=== PATIENT | female | born 1935 | race Caucasian/White ===

== ENCOUNTER → 2023-10-02 09:29 | Outpatient (REF) | payer MEDICARE, SELFPAY | LOC: HWRAD 09:29 | PROVIDERS: ATTENDING PHYSICIAN Internal Medicine Gastroenterology; FAMILY PHYSICIAN Internal Medicine | DX: R19.4 Change in bowel habit (principal); Z85.038 Personal history of other malignant neoplasm of large intestine | CPT/HCPCS: 74261 ==

== ENCOUNTER 2024-06-21 06:01 | Day surgery (SDC) | payer MEDICARE, SELFPAY ==
[2024-06-12 11:11] LABS: Hematocrit 40.5 % (37.0-47.0); Hemoglobin 13.6 g/dL (12.0-16.0); Mean Corp Hgb Conc. 33.6 g/dL (33.0-37.0); Mean Corpuscular Hgb 30.2 pg (27.0-31.0); Platelet Count 216 10^3/uL (130-400); Red Cell Dist. Width 14.1 % (11.5-14.5); White Blood Cell Count 7.1 10^3/uL (4.8-10.8)
[2024-06-12 11:37] LABS: Blood Urea Nitrogen 14 mg/dl (7-17); Calcium 9.4 mg/dl (8.4-10.2); Carbon Dioxide 33 mmol/L (22-30); Chloride 92 mmol/L (98-107); Glucose 85 mg/dl (70-99); Potassium 4.5 mmol/L (3.5-5.1); Sodium 132 mmol/L (135-145); eGFR > 60.00
[2024-06-12 13:40] VITALS: BMI 22.6
[2024-06-21 06:14] VITALS: BMI 22.6
[2024-06-21 06:15] VITALS: BP 163/88
--- NOTE | 2024-06-21 06:36 | HP.FOC2 ---
Focused History & Physical
Chief Complaint
HPI:
Chief Complaint: Left inguinal hernia
HPI / Indication for Planned Procedure: Patient is an 88-year-old female recently seen in outpatient surgical evaluation secondary to intermittent swelling in the left inguinal region. Physical examination confirmed the presence of a reducible left
inguinal hernia. Patient presents today for scheduled operative correction
Relevant Past Medical History: Other (Hypothyroidism, hypercholesterolemia, GERD, tachycardia, anxiety, history of colon cancer)
Relevant Social History: Negative
Relevant Family History: Negative
Relevant Past Surgical History: Positive for (Hysterectomy, right hemicolectomy, cataracts, open right inguinal herniorrhaphy, hemorrhoid surgery)
Review of Systems
Review of Pertinent Systems: All Systems Negative
Medication
See Medication form for detailed medications: Yes
Medication List (including Herbals & OTC):
alprazolam 0.25 mg disintegrating tablet 0.25 tablets PO BID PRN anxiety 08/14/15
denosumab 60 mg/mL subcutaneous syringe (Prolia) 60 mg SQ [id number] 03/11/18
docusate sodium 100 mg capsule (Colace) 100 mg PO DAILYPRN PRN constipation 03/11/18
metoprolol succinate 25 mg tablet,extended release 24 hr 12.5 mg PO BID 03/11/18
levothyroxine 50 mcg tablet 50 mcg PO DAILY 06/30/19
Biotin 1 tab PO DAILY 09/18/20
aspirin 81 mg chewable tablet 81 mg PO MOWEFR 09/18/20
cholecalciferol (vitamin D3) 25 mcg (1,000 unit) capsule (Vitamin D3) 1,000 unit PO DAILY 09/18/20
mirtazapine 7.5 mg tablet 7.5 mg PO QPM 09/18/20
polyethylene glycol 3350 17 gram/dose oral powder (Miralax) 119 gm PO QPM 09/18/20
docusate sodium 100 mg capsule (Colace) 200 mg PO HS 06/14/24
ezetimibe 10 mg tablet (Zetia) 10 mg PO DAILY 06/14/24
levothyroxine 75 mcg capsule 75 mcg PO ARROYO 06/14/24
omeprazole 20 mg tablet,delayed release 20 mg PO DAILY 06/14/24
vit C 250 mg-vit E 90 mg-zinc 40 mg-copper 1 ra-[id number]-zoiitp capsule (PreserVision AREDS-2) 1 tab PO BID 06/14/24
magnesium hydroxide 400 mg/5 mL oral suspension (Milk of Magnesia) 400 mg PO DAILY PRN constipation 06/21/24
Medications Reviewed: Yes
Allergies and Reactions
Patient has Allergies: Yes
Noted Allergies and Reactions:
Allergy/AdvReac Type Severity Reaction Status Date / Time
escitalopram [From Lexapro] Allergy Unknown Vomiting Verified 06/21/24 06:22
nitrofurantoin Allergy Unknown Nausea / Verified 06/21/24 06:22
[From Macrobid] Vomiting
sertraline Allergy Unknown Unknown Verified 06/21/24 06:22
trazodone Allergy Unknown Nausea / Verified 06/21/24 06:22
Vomiting
amoxicillin [From Augmentin] Allergy diarrhea Verified 06/21/24 06:22
clavulanic acid Allergy diarrhea Verified 06/21/24 06:22
[From Augmentin]
doxycycline Allergy upset Verified 06/21/24 06:22
stomach
hydromorphone HCl Allergy Unknown Verified 06/21/24 06:22
[From Dilaudid]
levofloxacin [From Levaquin] Allergy Rash Verified 06/21/24 06:22
procaine Allergy Shortness Verified 06/21/24 06:22
of Breath
Pertinent Physical Exam
All Other Systems: Negative
Head/Neck: Normal
Lungs: Normal
Heart: Normal
Abdomen: Other (Reducible left inguinal hernia)
Extremities: Normal
Neurological: Normal
Diagnosis / Assessment
88-year-old female presenting for scheduled operative correction symptomatic left inguinal hernia
Plan / Procedure
Open repair left inguinal hernia with mesh
Anesthesia/Sedation to be done by Anesthesia Provider: Yes
[2024-06-21] MEDS: TYLENOL 1000 MG PO (06:37)
[2024-06-21] MEDS: NORMOSOL-R/PLASMALYTE-A 1000 IV (06:37)
--- NOTE | 2024-06-21 06:39 | W.SUR.PREOP ---
Pre-Operative Surgical Note
-
I have examined this patient prior to the performance of the scheduled procedure.
The patient's condition is unchanged from the time of the current History and
Physical and the patient is able to undergo the scheduled procedure.
[2024-06-21 08:30] VITALS: BP 110/58
--- NOTE | 2024-06-21 08:41 | W.IMMPOSTOP ---
Addendum entered and electronically signed by Geo Tong MD 06/21/24 08:49:
#[id number]
Original Note:
Surgical Immed Post Op Note
-
Primary Surgeon: Geo Tong MD
Assisting Surgeon: Yanet Watson
Pre-op Diagnosis: Left inguinal hernia
Post-op Diagnosis: Left indirect inguinal hernia
Procedure Performed: Open left inguinal hernia repair with mesh
Anesthesia Type: MAC +1% lidocaine/0.25% Marcaine
Specimen / Cultures: None
Estimated Blood Loss: 8 mL
Complications: None immediate
Operative Findings: Left indirect inguinal hernia. Sac ligated. Closure of internal ring with 2-0 PDS suture. Yuni tension-free mesh repair, Bard soft mesh 7.5 x 15 cm trimmed to accommodate the inguinal space.
Patient's daughter updated postoperatively in the waiting area.
[2024-06-21 08:45] VITALS: BP 116/66
[2024-06-21 09:00] VITALS: BP 115/67
== END 2024-06-21 09:15 | disposition home or self-care (01) ==
LOC: SDS 06:01
PROVIDERS: ATTENDING PHYSICIAN Surgery; FAMILY PHYSICIAN Internal Medicine
DX: K40.90 Unilateral inguinal hernia, without obstruction or gangrene, not specified as recurrent (principal)
CPT/HCPCS: 49505; 36415; 80048; 85027; 93005